=== PATIENT | male | born 1960 ===

== ENCOUNTER 2024-09-29 11:50 | Day surgery (SDC) | payer OTHER ==
[~2024-09-29] VITALS: Ht 182.9 cm; Wt 77.1 kg
[~2024-09-29 11:50] MED LIST: IBLOOD GLUCOSE TEST STRIP 1 EA TEST VI PRN; LACTATED RINGER'S 1,000 ML IV SCH; LIDOCAINE HCL 1% 5 ML SDV INJ ONE; MIDAZOLAM HCL 5 MG/5 ML VIAL IV PRN; fentaNYL citrate 100 MCG/2 ML VIAL IV PRN
[2024-09-29 12:10] VITALS: BP 150/76
[2024-09-29] MEDS ORDERED: MULTI VITAMIN1 EACH PO (12:12)
[2024-09-29] MEDS ORDERED: fentaNYL citrate 100 MCG/2 ML VIAL ONE (12:43)
[2024-09-29] MEDS ORDERED: MIDAZOLAM HCL 5 MG/5 ML VIAL ONE (12:44)
[2024-09-29 13:44] VITALS: BP 107/74
--- NOTE | 2024-09-29 13:53 | NUR ---
09/29/24 1353 Suellen Millan 1321 PT ARRIVED IN PACU WIDE AWAKE. 1335 DR AT BEDSIDE. ALL QUESTIONS ANSWERED. 1340 SITTING AT BEDSIDE SIPPING ON WATER. DC INSTRUCTIONS GIVEN. 1350 LEFT VIA W/C.
--- NOTE | 2024-09-30 10:33 | OR ---
[facility] [address] [place], [place] [address] Signed DATE OF OPERATION: 09/29/2024 SURGEON: Ziyad Sloan MD PREOPERATIVE DIAGNOSIS: Screening colonoscopy. POSTOPERATIVE DIAGNOSIS: Sigmoid diverticulosis. PROCEDURE: Total colonoscopy to cecum. ANESTHESIA: Intravenous sedation fentanyl 100 mcg, Versed 6 mg. INDICATION: This 63-year-old white man is a patient of Dr. Conner Aguila. He is referred for screening colonoscopy. He has had no colon evaluation in the past. Has no current symptoms of bleeding, diarrhea, or constipation. He understands risk of bleeding, infection, and perforation related to colonoscopy and wished to proceed. FINDINGS: The prep was excellent. Complete colonoscopy was undertaken of the cecum with full intubation of the cecum. He had no evidence of polyps or colitis, only sigmoid diverticulosis. DESCRIPTION OF PROCEDURE: The patient was brought to the endoscopy suite and placed in lateral decubitus position, given intravenous sedation to the point of slurred speech and nystagmus. Digital rectal examination was normal. Olympus video colonoscope was passed in the rectum and manipulated throughout the colon ultimately intubating the cecum itself. The ileocecal valve and appendiceal orifice were normal. Scope was withdrawn from that point. Examination throughout showed no sign of abnormality into the sigmoid where diverticulosis was once again identified. Retroflexed view of the rectum was normal. The scope was removed. The patient was taken to the recovery room in good condition. CONCLUDING DIAGNOSIS: Electronically Signed By: ZIYAD SLOAN MD 09/30/24 1033 PATIENT NAME: IRWIN ORELLANA OPERATIVE REPORT DATE OF : 64 REPORT #: [id number] PHYSICIAN: ZIYAD SLOAN MD PCP: CONNER AGUILA MD REPORT IS CONFIDENTIAL AND NOT TO BE RELEASED WITHOUT AUTHORIZATION [facility] [address] [place], [place] [address] Signed Diverticulosis. No evidence of polyps. PLAN: Recommend repeat colonoscopy in 10 years. Recommend also high-fiber diet. He will return to the ongoing care of Dr. Conner Aguila. MD MAIN Canales/LOUISE /[id number] cc: Conner Aguila MD Copies: CONNER AGUILA MD ~ Electronically Signed By: ZIYAD SLOAN MD 09/30/24 1033 PATIENT NAME: IRWIN ORELLANA OPERATIVE REPORT DATE OF : 64 REPORT #: [id number] PHYSICIAN: ZIYAD SLOAN MD PCP: CONNER AGUILA MD REPORT IS CONFIDENTIAL AND NOT TO BE RELEASED WITHOUT AUTHORIZATION
== END 2024-09-29 13:50 | disposition home or self-care (01) ==
LOC: DS 11:50
PROVIDERS: ATTEND Surgery
PROC: 0DJD8ZZ Inspection of Lower Intestinal Tract, Via Natural or Artificial Opening Endoscopic (ICD-10-PCS; principal; 2024-09-29 12:30)
DX: Z12.11 Encounter for screening for malignant neoplasm of colon (principal); K57.30 Diverticulosis of large intestine without perforation or abscess without bleeding; Z88.0 Allergy status to penicillin
CPT/HCPCS: 99153; G0500; J2250; J3010; J7121